=== PATIENT | female | born 2000 | race Caucasian/White ===

== ENCOUNTER 2023-07-14 10:34 | Outpatient (CLI) | payer OTHER, SELFPAY ==
--- NOTE | ~2023-07-14 | US_ITS ---
EXAMINATION: US abdomen complete DATE: 07/14/2023 11:21 INDICATION: Abdominal distention. TECHNIQUE: Multiple grayscale and Doppler ultrasound images of the abdomen were obtained. COMPARISON: None FINDINGS: The visualized portions of the head and body of the pancreas are normal. The liver is jaqueline l. There is normal flow in main portal vein. The gallbladder is normal in size. No gallstones or gall bladder wall thickening. There is no sonographic Ramsey sign. The common duct is normal and measures 4 mm. Inferior vena cava is normal. Abdominal aorta is normal in caliber. The spleen is normal in siz e. The kidneys are normal in size. IMPRESSION: 1. Normal complete abdomen ultrasound. Reviewed, dictated and finalized at location E.
== END 2023-07-14 10:35 ==
PROVIDERS: PCP Physician Assistant; Visit Provider Physician Assistant
DX: R14.0 Abdominal distension (gaseous) (principal)
CPT/HCPCS: 76700